=== PATIENT | male | born 1990 | race Caucasian/White ===

== ENCOUNTER → 2019-03-12 | Emergency (ER) | payer OTHER ==
[~2019-03-12] VITALS: Ht 172.7 cm; Wt 74.8 kg
[~2019-03-12] MED LIST: AMOXICILLIN 50500 MG PO; LIDOCAINE VISC100 ML SWISH&SPIT
[2019-03-12 20:19] VITALS: BP 151/89
== END ==
LOC: M.ERS 20:14
DX: K04.7 Periapical abscess without sinus (principal); F17.210 Nicotine dependence, cigarettes, uncomplicated; Z88.8 Allergy status to other drugs, medicaments and biological substances

== ENCOUNTER 2019-05-12 21:22 | Emergency (ER) | payer OTHER ==
[~2019-05-12] VITALS: Ht 175.3 cm; Wt 74.8 kg
[2019-05-12] MEDS ORDERED: PENICILLIN VK500 MG PO (22:51)
[2019-05-12] MEDS ORDERED: IBUPROFEN 800800 MG PO (22:51)
[2019-05-12] MEDS ORDERED: NORCO 5-325 TA1 EAC1 PO (22:51)
[2019-05-12 23:03] VITALS: BP 138/82
== END 2019-05-12 23:04 | disposition home or self-care (01) ==
LOC: M.ERS 21:22
DX: L03.211 Cellulitis of face (principal); K02.9 Dental caries, unspecified; L08.9 Local infection of the skin and subcutaneous tissue, unspecified; Z88.8 Allergy status to other drugs, medicaments and biological substances